=== PATIENT | male | born 1975 | race Caucasian/White ===

== ENCOUNTER 2019-07-19 16:30 | Emergency (ER) | payer BC, OTHER ==
[~2019-07-19] VITALS: Ht 180.3 cm; Wt 75.7 kg
[2019-07-19 16:30] VITALS: BP 122/81
[~2019-07-19 16:30] MED LIST: GABA100C PO; LEVEMIR SUBQ; LISI-424 PO; METF-988 PO
--- NOTE | 2019-07-19 16:30 | NUR ---
DILAN DOVE ALS AND PLACED IN BED 2.
--- NOTE | 2019-07-19 16:35 | NUR ---
43 Y/O MALE ARRIVED BY AMBULANCE WITH C/O N/V, POLYRUIA, LIGHT HEADED AND ABDOMINAL PAIN LEFT SIDE 04/07. PATIENT STATED HIS BLOOD SUGAR HAS BEEN OFF FOR 1 WEEK, WITH THE LAST READING AT HOME 324, BS PERFORMED HERE 262. PATIENT WAS GIVEN 4 MG OF ZOFRAN EN ROUTE BY EMS. BED WAS LOWERED TO LOWEST POSITION AND SIDE RAIL X1 IN PLACE.
[2019-07-19] MEDS ORDERED: NACL 0.9% 1,000 ML IV ONE (17:05)
[2019-07-19] MEDS ORDERED: ONDANSETRON 4 MG ODT PO ONE (17:05)
--- NOTE | 2019-07-19 17:26 | NUR ---
ZOFRAN ADMINISTERED PO. NS BOLUS STARTED IV
[2019-07-19 17:35] LABS: BASOPHILS # (AUTO) 0.1 K/uL (0.00-0.22); BASOPHILS % (AUTO) 0.9 % (0.0-2.0); EOSINOPHILS % (AUTO) 0.6 % (0.0-4.0); HEMATOCRIT 42.8 % (36-52); HEMOGLOBIN 14.4 g/dL (12.0-18.0); LYMPHOCYTES # (AUTO) 1.1 K/uL (2.0-11.5); LYMPHOCYTES % (AUTO) 15.6 % (20.5-51.1); MEAN CORPUSCULAR HEMOGLOBIN 29 pg (27-31); MEAN CORPUSCULAR HGB CONC 34 g/dL (33-37); MEAN CORPUSCULAR VOLUME 85.6 fL (80-94); MONOCYTES # (AUTO) 0.5 K/uL (0.8-1.0); MONOCYTES % (AUTO) 6.9 % (1.7-9.3); NEUTROPHILS # (AUTO) 5.5 K/uL (1.8-7.7); PLATELET COUNT (AUTO) 248 K/uL (140-450); WHITE BLOOD COUNT (AUTO) 7.2 K/uL (4.8-10.8)
[2019-07-19 17:45] LABS: ANION GAP 13.7 (8-16); CARBON DIOXIDE 26.1 mmol/L (21-32); CREATININE 0.7 mg/dL (0.7-1.3); POTASSIUM 3.8 mmol/L (3.5-5.1)
[2019-07-19 17:51] LABS: ALBUMIN 4.1 g/dL (3.4-5.0); TOTAL BILIRUBIN 0.4 mg/dL (0.0-1.0)
[2019-07-19 18:30] LABS: APPEARANCE,URINE CLEAR (CLEAR); BILIRUBIN,URINE NEGATIVE (NEGATIVE); BLOOD, URINE NEGATIVE (NEGATIVE); COLOR,URINE YELLOW (YELLOW); LEUKOCYTE ESTERASE ,URINE NEGATIVE (NEGATIVE); NITRITE, URINE NEGATIVE (NEGATIVE); PH,URINE 5.5 (5.0-9.0); UGLUCOSE 3+ (NEGATIVE)
--- NOTE | 2019-07-19 18:48 | NUR ---
Dr. Bustamante re-evaluating patient at bedside.
--- NOTE | 2019-07-19 19:07 | NUR ---
Pt report given to RICK Cedeno. Transfer of care at this time.
[2019-07-19 19:09] VITALS: BP 126/74
--- NOTE | 2019-07-19 19:09 | NUR ---
Patient discharged with v/s stable. Written and verbal after care instructions given and explained. Patient alert, oriented and verbalized understanding of instructions. Ambulatory with steady gait. All questions addressed prior to discharge. ID band removed. Patient advised to follow up with PMD. Rx of lANTUS given. Patient educated on indication of medication including possible reaction and side effects. Opportunity to ask questions provided and answered.
== END 2019-07-19 19:09 | disposition home or self-care (01) ==
LOC: MED 16:30
DX: E11.65 Type 2 diabetes mellitus with hyperglycemia (principal); I10 Essential (primary) hypertension; Z79.899 Other long term (current) drug therapy; Z79.4 Long term (current) use of insulin
CPT/HCPCS: 36415; 71045; 80053; 81003; 83690; 85025; 93005; 96360; 99284; J7030; Q0092; Q0162